=== PATIENT | male | born 1965 | race Caucasian/White ===

== ENCOUNTER → 2018-04-30 10:21 | Outpatient (CLI) | payer OTHER, SELFPAY ==
[2018-04-30 11:22] LABS: Hematocrit 46.5 % (41-53); Hemoglobin 15.5 g/dL (13.5-17.5); Mean Corpuscular HGB Conc 33.3 % (30-36); Mean Corpuscular Volume 93.1 fL (80-100); Platelet Count 202 X10^3/uL (150-400); Red Blood Cell Count 4.99 X10^6/uL (4.5-5.9); White Blood Cell Count 5.3 X10^3/uL (4.5-11.0)
[2018-04-30 11:41] LABS: Blood Urea Nitrogen 16 mg/dL (9-20); Carbon Dioxide 23 mmol/L (22-32); Chloride 107 mmol/L (98-107); Estimated Glomerular Filt Rate > 60.0 mL/min (>60); Glucose 95 mg/dL (70-100); HEMOLYSIS < 15 (0-50); Potassium 4.7 mmol/L (3.4-5.1); Sodium 140 mmol/L (137-145)
[2018-04-30 17:56] LABS: Cholesterol 201 mg/dL (140-199); HDL Cholesterol 36 mg/dL (40-60); LDL Cholesterol Calculated 136 mg/dL (<100); Triglycerides 147 mg/dL (35-150)
[2018-05-07 13:25] LABS: Testosterone Free 40.9 pg/mL (35.0-155.0); Testosterone Total 357 ng/dL (250-1100)
== END ==
PROVIDERS: Family Provider Nurse Practitioner Gerontology; PCP Internal Medicine; Visit Provider Internal Medicine
DX: E29.1 Testicular hypofunction (principal); I10 Essential (primary) hypertension
CPT/HCPCS: 36415; 80048; 80061; 84402; 84403; 85027

== ENCOUNTER → 2020-02-20 13:21 | Outpatient (CLI) | payer OTHER, SELFPAY | PROVIDERS: PCP Internal Medicine; Referring Provider Internal Medicine; Visit Provider Internal Medicine | DX: D80.1 Nonfamilial hypogammaglobulinemia (principal); E55.9 Vitamin D deficiency, unspecified; Z94.84 Stem cells transplant status | CPT/HCPCS: 77080 ==

== ENCOUNTER → 2020-03-28 09:59 | Outpatient (CLI) | payer OTHER, SELFPAY ==
[2020-03-28 11:17] LABS: COVID19 -Nasal RAPID Negative (Negative)
== END ==
PROVIDERS: PCP Internal Medicine; Visit Provider Nurse Practitioner
DX: Z11.59 Encounter for screening for other viral diseases (principal)
CPT/HCPCS: 87635

== ENCOUNTER 2020-03-30 09:01 | Day surgery (SDC) | payer OTHER, SELFPAY ==
[2020-03-30] VITALS (7 sets, daily range): BP systolic 101–137; BP diastolic 67–93; PULSE 71–75; RESP 16–20; TEMP 36.6–38.7; O2SAT 96–100; BMI 24.0
[2020-03-30] MEDS: LACTATED RINGERS 1,000 ML 200 ML IV (09:38)
--- NOTE | 2020-03-30 10:06 | PM.HP.1 ---
History of Present Illness History of Present Illness Date Patient Seen: 03/30/20 Time Patient Seen: 10:06 Chief complaint: SDC Narrative: The patient presents for colorectal sreening. He had previously normal colonoscopy 10 years ago. No personal or family history of colon cancer. On further history denies any recent gastrointestinal symptoms. No nausea, vomiting, abdominal pain, loss of appetite, unexplained weight loss, change in bowel habits, diarrhea, constipation, melena, hematochezia, or bright red blood per rectum. Patient History Medical History (Updated 03/30/20 @ 10:07 by Omar Frost MD) Acute bronchitis, bacterial Benign tumor of duodenum, jejunum, and ileum HSV (herpes simplex virus) infection Hypogammaglobulinemia Surgical History (Updated 03/30/20 @ 10:07 by Omar Frost MD) H/O exploratory laparotomy Family & Social History Social History: household members spouse Tobacco & Substance use: Smoking Status Never smoker alcohol intake frequency a few times a week Substance Use Type marijuana Meds Home Medications and Allergies Home Medications Medication Instructions Recorded Confirmed Type [COLON HEALTH] 1 cap Q DAY #0 10/24/12 03/30/20 History [GAMMAGLOBULIN] 40 gm IV QMONTH #0 10/24/12 03/30/20 History [HYPO TEARS] 1 - 2 drp PRN #0 10/24/12 03/30/20 History omeprazole 40 mg PO BID #0 10/24/12 03/30/20 History Gammaked 40 gm IV Q4W #0 04/01/16 03/30/20 History lisinopril 20 mg PO QDAY #0 04/01/16 03/30/20 History quinine sulfate 300 mg PO QDAY #0 04/01/16 03/30/20 History gabapentin [Neurontin] 300 mg PO TID #90 cap 07/24/17 03/30/20 Rx pramipexole [Mirapex] 0.25 mg PO HS #0 08/14/17 03/30/20 History Allergies Allergy/AdvReac Type Severity Reaction Status Date / Time metoclopramide Allergy Severe Anxiety Verified 03/30/20 09:14 Review of Systems Review of Systems Narrative: A 10 point review of systems is negative except as noted in the HPI Exam Vital Signs (past 8 hours): - 03/30/20 09:25 Temperature 97.8 F Pulse Rate 71 Respiratory Rate 18 Blood Pressure 137/82 Pulse Oximetry 100 Oxygen Delivery Method Room Air Narrative Exam Narrative: General-no acute distress, well nourished adult male HEENT-moist mucous membranes, no scleral icterus Neck-supple, no lymphadenopathy Chest- non labored respirations, clear to auscultation bilaterally Cardiac-regular rate no peripheral edema Abdomen-soft, nontender, non distended Extremities-warm, well perfused Neurological-alert and oriented, no focal deficits Assessment & Plan Assessment and plan (1) Screening for colon cancer: Status: Acute Assessment & Plan narrative: The patient requires colorectal screening and colonoscopy is recommended. Technical details were discussed. Risks, benefits, alternatives explained. Risks including but not limited to myocardial infarction, aspiration, bleeding, pain, missed lesion, incomplete examination, need for further radiographic studies, colonic perforation, and need for major abdominal surgery were discussed. All questions were answered to their satisfaction, and they are in agreement with this plan.
[2020-03-30] MEDS: fentaNYL 250 MCG/5 ML INJ IV (10:30)
[2020-03-30] MEDS: MIDAZOLAM 5 MG/5 ML VIAL IV (10:32)
--- NOTE | 2020-03-30 10:48 | PM.OP.ENDO ---
Operative Date/Time/Diagnoses Date of procedure: 03/30/20 Time of procedure: 10:48 Pre-op diagnosis: screening colonoscopy Post-op diagnosis: other (diverticulosis) Procedure & Clinicians Study performed: colonoscopy Same procedure as scheduled: Yes Indications: Screening colonoscopy Surgeon: Omar Frost Procedure Notes Procedure in detail: Medications: Conscious sedation using 9mg IV midazolam and 250mcg IV of fentanyl The history and physical was performed/updated and the patient is ASA class is 2. The procedure was discussed in detail with the patient. Potential risks complications including infection, bleeding, missed diagnosis, perforation, need for surgery, and were explained. Their questions were answered and informed consent was obtained. Patient was brought to the procedure room and placed standard monitoring equipment. The patient's vital signs were monitored continuously throughout the entire procedure. Prior to starting time-out was performed. The ablation patient was placed in the left lateral recumbent position. Procedural sedation was administered. Examination began with a thorough inspection of the perianal area there was no evidence of fissures, fistulae, external hemorrhoids or cutaneous malignancy. The colonoscopy scope was then placed into the anal canal and was advanced to the cecum, which was identified by the ileocecal valve, the appendiceal orifice and the confluence of the taenia. The scope was then slowly withdrawn examining colon thoroughly in all directions, irrigating it of any residual stool. No masses or polyps Sigmoid diverticulosis Tortuous sigmoid colon The patient tolerated the procedure well. They will be discharged once criteria are met. The prep was of good/excellent quality. The withdrawl time was 7 minutes. The sedation time was 33 minutes. Specimen(s): none sent Complications: none Impression: Diverticulosis Post-procedure Recommendations: Colonscopy in 10 years Disposition: same day surgery
== END 2020-03-30 11:33 | disposition home or self-care (01) ==
PROVIDERS: PCP Internal Medicine; Referring Provider Surgery; Visit Provider Surgery
PROC: 0DJD8ZZ Inspection of Lower Intestinal Tract, Via Natural or Artificial Opening Endoscopic (ICD-10-PCS; CPT 45378; principal; 2020-03-30 10:00)
DX: Z12.11 Encounter for screening for malignant neoplasm of colon (principal); K57.30 Diverticulosis of large intestine without perforation or abscess without bleeding
CPT/HCPCS: 45378; 99152; 99153; J2250; J3010

== ENCOUNTER → 2020-07-31 18:28 | Outpatient (ROUT) | payer BC, SELFPAY ==
[2020-08-05 14:12] LABS: Percent Free Testosterone 1.87 % (1.50-4.20)
== END ==
PROVIDERS: PCP Internal Medicine; Visit Provider Internal Medicine
DX: E29.1 Testicular hypofunction (principal)
CPT/HCPCS: 84402; 84403